=== PATIENT | female | born 2000 | race Caucasian/White ===

== ENCOUNTER 2022-06-15 18:54 | Outpatient (CLI) | payer BC, SELFPAY | END 2022-06-15 18:55 | disposition home or self-care (01) | PROVIDERS: Visit Provider Student in an Organized Health Care Education/Training Program | DX: R22.0 Localized swelling, mass and lump, head (principal); J02.9 Acute pharyngitis, unspecified | CPT/HCPCS: 87110; 87140; 87252 ==